=== PATIENT | female | born 1995 | race Caucasian/White ===

== ENCOUNTER 2016-06-28 13:39 | Emergency (ER) | payer OTHER ==
[~2016-06-28] VITALS: Ht 162.6 cm; Wt 68.2 kg
[2016-06-28] MEDS ORDERED: SODIUM CHLORIDE 0.9% 1,000 ML IV ONE (14:09)
[2016-06-28] MEDS ORDERED: ONDANSETRON 2MG/ML, 2ML IVPush ONE (14:30)
[2016-06-28] MEDS ORDERED: MORPHINE SULFATE 4 MG/ML, 1ML IVPush PRN (14:30)
[2016-06-28] MEDS ORDERED: SODIUM CHLORIDE 0.9% 1,000ML IVBOLUS ONE (14:30)
[2016-06-28 14:42] LABS: ASPARTATE AMINO TRANSFERASE 12 U/L (15-37); BLOOD UREA NITROGEN 14 mg/dL (7-18)
[2016-06-28] MEDS ORDERED: LEVO100T5 PO (17:04)
[2016-06-28 18:25] VITALS: BP 113/68
== END 2016-06-28 18:27 | disposition home or self-care (01) ==
LOC: ED 18:21
DX: N92.4 Excessive bleeding in the premenopausal period (principal)
CPT/HCPCS: 36415; 76830; 80053; 81003; 83690; 84703; 85025; 99285

== ENCOUNTER 2016-07-22 21:15 | Emergency (ER) | payer OTHER ==
[~2016-07-22] VITALS: Ht 162.6 cm; Wt 69.7 kg
[~2016-07-22 21:15] MED LIST: LEVO100T5 PO
[2016-07-22] MEDS ORDERED: LIDOCAINE 1%-EPI 1:100K, 20ML SQ ONE (23:00)
[2016-07-22] MEDS ORDERED: LIDOCAINE 1%, 20ML ONE (23:03)
[2016-07-22] MEDS ORDERED: HYDROmorphone 1 MG/ML, 1ML ONE (23:53)
[2016-07-23] MEDS ORDERED: SODIUM CHLORIDE 0.9% 1,000ML IVBOLUS ONE
[2016-07-23] MEDS ORDERED: ONDANSETRON 2MG/ML, 2ML IVPush ONE
[2016-07-23] MEDS ORDERED: HYDROmorphone 1 MG/ML, 1ML IVPush PRN
[2016-07-23] MEDS ORDERED: SODIUM CHLORIDE FLUSH 10ML SYR IVF ONE
[2016-07-23] MEDS ORDERED: ONDANSETRON 2MG/ML, 2ML ONE (00:09)
[2016-07-23 00:37] LABS: ASPARTATE AMINO TRANSFERASE 13 U/L (15-37); BLOOD UREA NITROGEN 13 mg/dL (7-18)
[2016-07-23] MEDS ORDERED: OMNIPAQUE 350 MG/ML, 100ML BOTTLE ONE (01:08)
[2016-07-23] MEDS ORDERED: BUPIVACAINE/PF 0.5% ONE (01:38)
[2016-07-23] MEDS ORDERED: SULFAMETH./TRIMETHOPRIM DS 800MG/160MG TABLET PO ONE (02:00)
[2016-07-23] MEDS ORDERED: CEFTRIAXONE 1,000 MG IM ONE (02:00)
[2016-07-23] MEDS ORDERED: SULFAMETH./TRIMETHOPRIM DS 800MG/160MG TABLET ONE (02:49)
[2016-07-23] MEDS ORDERED: CEFTRIAXONE 1,000 MG ONE (02:49)
[2016-07-23 03:34] VITALS: BP 103/70
== END 2016-07-23 03:34 | disposition home or self-care (01) ==
LOC: ED 23:59
DX: L05.01 Pilonidal cyst with abscess (principal)
CPT/HCPCS: 10080; 36415; 72193; 80053; 84703; 85025; 96361; 96372; 96374; 96375; 99285; J0696; J1170; J2405; J7030; Q9967

== ENCOUNTER 2016-07-25 19:46 | Emergency (ER) | payer OTHER ==
[~2016-07-25] VITALS: Ht 160 cm; Wt 68.7 kg
[2016-07-25] MEDS ORDERED: LIDOCAINE 1%, 20ML ONE (21:06)
[2016-07-25] MEDS ORDERED: ONDANSETRON ODT 4 MG ONE (21:06)
[2016-07-25] MEDS ORDERED: OXYcodone/APAP 5/325MG TABLET ONE (21:06)
[2016-07-25] MEDS ORDERED: SULF1TAB24 PO (21:09)
[2016-07-25] MEDS ORDERED: OXYC-302 PO (21:09)
[2016-07-25] MEDS ORDERED: CEPH-368 PO (21:09)
[2016-07-25 21:27] LABS: BLOOD UREA NITROGEN 11 mg/dL (7-18)
[2016-07-25] MEDS ORDERED: ONDANSETRON ODT 4 MG PO ONE (21:30)
[2016-07-25] MEDS ORDERED: LIDOCAINE 1%, 20ML SQ ONE (21:30)
[2016-07-25] MEDS ORDERED: OXYcodone/APAP 5/325MG TABLET PO ONE (21:30)
[2016-07-25] MEDS ORDERED: MORPHINE SULFATE 4 MG/ML, 1ML ONE (22:29)
[2016-07-25] MEDS ORDERED: MORPHINE SULFATE 4 MG/ML, 1ML IVPush PRN (22:30)
[2016-07-25] MEDS ORDERED: SODIUM CHLORIDE FLUSH 10ML SYR IVF ONE (22:30)
[2016-07-25] MEDS ORDERED: SODIUM CHLORIDE 0.9% 1,000ML IVBOLUS ONE (22:30)
[2016-07-25 23:37] VITALS: BP 108/71
== END 2016-07-25 23:45 | disposition home or self-care (01) ==
LOC: ED 23:30
DX: L05.91 Pilonidal cyst without abscess (principal); L03.317 Cellulitis of buttock
CPT/HCPCS: 10080; 36415; 80048; 82040; 85025; 96374; 99284; Q0162